=== PATIENT | female | born 1990 | race Hispanic/Latino ===

== ENCOUNTER 2017-03-11 13:54 | Emergency (ER) | payer MEDICAID, OTHER ==
[2017-03-11 13:54] VITALS: BMI 32.9
[2017-03-11 14:11] VITALS: BP 160/75; PULSE 125; RESP 20; TEMP 99; O2SAT 96
[2017-03-11] MEDS ORDERED: Sodium Chloride 0.9% 1,000 ML IV STA (14:40)
--- NOTE | 2017-03-11 15:15 | ED PDOC ---
HPI: Female Pain Chief Complaint (Provider): R flank and lower abdominal pain History Per: Patient History/Exam Limitations: no limitations Onset/Duration Of Symptoms: Days Current Symptoms Are (Timing): Still Present Severity: Moderate Pain Scale Rating Of: 8 Ant/Post Bofy Image: 1 - Flank pain: sharp/stabbing /10; localized 2 - Lower abdo pain: pressure/cramping /; intermittnet Quality Of Discomfort: Sharp, Cramping, Pressure, Stabbing Associated Symptoms: Back Pain, Urinary Symptoms (increased frequency). denies : Nausea, Vomiting, Diarrhea, Constipation Alleviating Factors: None Additional Complaint(s): Luanne Garcia is a pleasant 26 yo lady with no significant past medical history presents to the ED with R sided flank and lower abdominal pain. Symptoms began spontaneously on Wednesday while she was resting. R flank pain: Stabbing, intermittent, /10, exacerbated with laying down, no alleviating factors. Has not tried OTC meds. Abdo pain: lower abdomen, suprapubic; intermittent; unknown aggravating factors ; non alleviating factors She denies recent history of similar symptoms. She shares of 1 week history of increased urinary frequency; denies hematuria, dysuria, burning on urination. Denies: N/V/CP/SOB/PEREZ/weakness/dizziness/constipation/diarrhea. No history of trauma/accidents/falls. 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 No known hx of STIs OB Hx: LMP: 02/06/2017; x2 full term F; 08/2016 stillborn at 23 wks [place]. NKDA Meds: none <Greg Abrams - Last Filed: 03/11/17 16:43> <Adeel Caldwell - Last Filed: 03/11/17 17:02> Time Seen by Provider: 03/11/17 14:18 Chief Complaint (Nursing): Female Genitourinary Supervising Attending Note - Supervising Attending Note The Documented history was done by the: Physician Ornamental Metal Erector The documented physical exam was done by the: Physician Ornamental Metal Erector The documented procedures were done by the: Physician Ornamental Metal Erector - Attestation: I have personally seen and examined this patient.: Yes I have fully participated in the care of the patient.: Yes I have reviewed all pertinent clinical information, including history, physical exam and plan: Yes - Notes: Notes:: abd pain <Adeel Caldwell - Last Filed: 03/11/17 17:02> Past Medical History Vital Signs: Last Vital Signs Temp 99 F 03/11/17 14:09 Pulse 125 H 03/11/17 14:09 Resp 20 03/11/17 14:09 BP 160/75 H 03/11/17 14:09 Pulse Ox 96 03/11/17 14:09 - Family History Family History: States: Unknown Family Hx - Immunization History Hx Tetanus Toxoid Vaccination: No Hx Influenza Vaccination: No Hx Pneumococcal Vaccination: No <Greg Abrams - Last Filed: 03/11/17 16:43> Vital Signs: Last Vital Signs Temp 99 F 03/11/17 14:09 Pulse 125 H 03/11/17 14:09 Resp 20 03/11/17 14:09 BP 160/75 H 03/11/17 14:09 Pulse Ox 96 03/11/17 16:48 <Adeel Caldwell - Last Filed: 03/11/17 17:02> - Home Medications Home Medications: Ambulatory Orders Medication Instructions Recorded Ibuprofen [Motrin] 600 mg PO TID 7 Days tab 03/11/17 Nitrofurantoin Macrocrystals 100 mg PO BID #10 cap 03/11/17 [Macrobid] - Allergies Allergies/Adverse Reactions: Allergies Allergy/AdvReac Type Severity Reaction Status Date / Time No Known Allergies Allergy Verified 02/22/17 19:37 Physical Exam - Reviewed Vital Signs Reviewed: Yes (Repeat Vitals: Manual BP cuff at 122/60 Pulse: 88) - Physical Exam Appears: Positive for: Well, No Acute Distress Skin: Positive for: Normal Color, Warm, Dry Eye Exam: Positive for: EOMI Cardiovascular/Chest: Positive for: Regular Rate, Rhythm Respiratory: Positive for: Normal Breath Sounds Gastrointestinal/Abdominal: Positive for: Bowel Sounds, Soft, Tenderness Pelvic Exam: Positive for: External Exam Normal, Speculum Exam Normal, Bimanual Exam Normal, No Cerv. Motion Tender, No Masses, Discharge (White/yellow), Other (Cervix closed). Negative for: Active Bleeding, Lesions Back: Negative for: L CVA Tenderness, R CVA Tenderness Extremity: Negative for: Calf Tenderness Neurologic/Psych: Positive for: Alert, information systems consultant II-XII, Oriented <AlizaGreg Gray Filed: 03/11/17 16:43> - Physical Exam Gastrointestinal/Abdominal: Positive for: Soft, Tenderness (lower R) <Adeel Caldwell Becky Filed: 03/11/17 17:02> - Laboratory Results Result Diagrams: 03/11/17 15:40 03/11/17 15:40 - ECG O2 Sat by Pulse Oximetry: 96 <AlizaGreg Filed: 03/11/17 16:43> - Laboratory Results Result Diagrams: 03/11/17 15:40 03/11/17 15:40 - Progress ED Course And Treament: 1702: Stable. AAOx3. Pain free. Tolerated PO. No tachy as evaluated in room. BP wnl. <Adeel Caldwell Becky Gray Filed: 03/11/17 17:02> Disposition - Patient ED Disposition Is Patient to be Admitted: No Discussed With : Adeel Caldwell (r/o: /ectopic/UTI/nephrolithiais /appendicitis/ovarian torsion/PID) Comment: Pt shares of improved symptoms. UPT neg. CT abdo no acute findings. UA small LE. Discharge home with empiric abx. f/u with PCP;. Pain managment: motrin or acetaminophen - Disposition Disposition: Routine/Home Disposition Time: 16:45 <AlizaGreg Filed: 03/11/17 16:43> - Patient ED Disposition Is Patient to be Admitted: No Counseled Patient/Family Regarding: Studies Performed, Diagnosis, Need For Followup, Rx Given - Disposition Disposition: Routine/Home <Adeel Caldwell Becky Gray Filed: 03/11/17 17:02> - Clinical Impression Clinical Impression: Urinary tract infection, Abdominal pain - Disposition Referrals: [facility] [Outside] - 03/12/17 Condition: STABLE Additional Instructions: Return if not better in 3 days. Prescriptions: Ibuprofen [Motrin] 600 mg PO TID 7 Days tab Nitrofurantoin Macrocrystals [Macrobid] 100 mg PO BID #10 cap Instructions: Acute Abdominal Pain (ED), Urinary Tract Infection in Women (ED) Forms: [facility] ([place]), [facility] ED School/Work Excuse
[2017-03-11 16:05] LABS: BASO % 0.4 % (0.0-2.0); EOS # 0.1 K/uL (0.0-0.7); EOS % 1.1 % (0.0-4.0); HEMATOCRIT 39.2 % (34.0-47.0); LYMPH # 0.8 K/uL (1.0-4.3); MEAN CELL VOLUME 90.9 fl (81.0-99.0); MEAN CORPUSCULAR HEMOGLOBIN 30.5 pg (27.0-31.0); MEAN CORPUSCULAR HGB CONC 33.5 g/dL (33.0-37.0); MEAN PLATELET VOLUME 8.6 fl (7.2-11.7); MONO # 0.3 K/uL (0.0-0.8); MONO % 5.3 % (0.0-10.0); NEUT # 4.3 K/uL (1.8-7.0); NEUT % 78.2 % (50.0-75.0); RED CELL DISTRIBUTION WIDTH 12.9 % (11.5-14.5); WHITE BLOOD COUNT 5.5 K/uL (4.8-10.8)
--- NOTE | 2017-03-11 16:05 | CT ---
PROCEDURE: CT Abdomen and Pelvis without intravenous contrast HISTORY: Right-sided abdominal and back pain, right lower quadrant pain. By history, negative test (concurrent with this examination). COMPARISON: None. TECHNIQUE: Unenhanced study. Neither oral nor intravenous contrast administered. Radiation dose: Total exam DLP = 960.33 mGy-cm. This CT exam was performed using one or more of the following dose reduction techniques: Automated exposure control, adjustment of the mA and/or kV according to patient size, and/or use of iterative reconstruction technique. FINDINGS: LOWER THORAX: Unremarkable. LIVER: Unremarkable. No gross lesion or ductal dilatation. GALLBLADDER AND BILE DUCTS: Unremarkable. PANCREAS: Unremarkable. No gross lesion or ductal dilatation. SPLEEN: Unremarkable. ADRENALS: Unremarkable. No mass. KIDNEYS AND URETERS: Unremarkable. No hydronephrosis. No solid mass. VASCULATURE: Unremarkable. No aortic aneurysm. BOWEL: Unremarkable. No obstruction. No gross mural thickening. APPENDIX: Unremarkable. Normal appendix. PERITONEUM: Unremarkable. No free fluid. No free air. LYMPH NODES: Unremarkable. No enlarged lymph nodes. BLADDER: Unremarkable. REPRODUCTIVE: Unremarkable. BONES: No acute fracture. OTHER FINDINGS: None. IMPRESSION: No acute findings related to/accounting for the clinical presentation.
[2017-03-11 16:14] LABS: ALB/GLOB RATIO 1.5 (1.0-2.1); ALKALINE PHOSPHATASE 34 U/L (38-126); ALT/SGPT 30 U/L (9-52); AST/SGOT 23 U/L (14-36); BILIRUBIN,TOTAL 0.9 mg/dl (0.2-1.3); BLOOD UREA NITROGEN 13 mg/dl (7-17); CALCIUM 9.2 mg/dL (8.4-10.2); CARBON DIOXIDE 22 mmol/L (22-30); CHLORIDE 109 mmol/L (98-107); GFR AFRICAN-AMERICAN > 60; GLUCOSE,RANDOM 91 mg/dL (65-105); POTASSIUM 3.7 MMOL/L (3.6-5.0); SODIUM 143 mmol/l (132-148); TOTAL PROTEIN 7.9 G/DL (6.3-8.2)
[2017-03-11 16:26] LABS: RBC URINE 2 /hpf (0-3); URINE BACTERIA RARE (<OCC); URINE BILIRUBIN NEGATIVE (NEGATIVE); URINE BLOOD SMALL (NEGATIVE); URINE COLOR YELLOW (YELLOW); URINE GLUCOSE (UA) NEG (Normal); URINE KETONE TRACE mg/dL (NEGATIVE); URINE LEUKOCYTE ESTERASE SMALL Leu/uL (Negative); URINE PROTEIN 30 mg/dL (NEGATIVE); URINE UROBILINOGEN 0.2-1.0 mg/dL (0.2-1.0); WBC URINE 3 /hpf (0-5)
== END 2017-03-11 18:00 | disposition home or self-care (01) ==
LOC: H.ER 13:54
DX: N39.0 Urinary tract infection, site not specified (principal)
CPT/HCPCS: 74176; 80053; 81003; 81025; 85025; 87086; 87491; 87591; 96374; 99283; J1885; J7040

== ENCOUNTER 2017-06-14 17:09 | Emergency (ER) | payer MEDICAID, OTHER ==
[2017-06-14 17:09] VITALS: BMI 32.9
[2017-06-14 18:06] VITALS: BP 139/81; PULSE 90; RESP 20; TEMP 98.7; O2SAT 99
--- NOTE | 2017-06-14 18:47 | ED PDOC ---
HPI: General Adult Time Seen by Provider: 06/14/17 18:38 Chief Complaint (Nursing): Back Pain Chief Complaint (Provider): back pain, chest pain, abd pain History Per: Patient Additional Complaint(s): 26-year-old female presents to emergency department with right-sided lower back pain that radiates to right lower quadrant 2 days. Patient denies fever or chills. She has had mild dysuria but denies hematuria, vaginal bleeding or vaginal discharge. Patient also complains of intermittent chest pain since yesterday. She has had dry cough with no fever or chills. Patient denies shortness of breath or dyspnea on exertion. Motrin has provided minimal relief of back pain, no associated nausea or vomiting. PMD: none Past Medical History Reviewed: Historical Data, Nursing Documentation, Vital Signs Vital Signs: Last Vital Signs Temp 98.7 F 06/14/17 18:03 Pulse 90 06/14/17 18:03 Resp 20 06/14/17 18:03 BP 139/81 06/14/17 18:03 Pulse Ox 99 06/14/17 19:43 - Medical History PMH: No Chronic Diseases - Surgical History Surgical History: No Surg Hx - Family History Family History: States: No Known Family Hx - Living Arrangements Living Arrangements: With Family - Social History Current smoker - smoking cessation education provided: Yes Alcohol: Social Drugs: Denies - Home Medications Home Medications: Ambulatory Orders Medication Instructions Recorded Nitrofurantoin Macrocrystals 100 mg PO BID #14 cap 05/27/17 [Macrobid] - Allergies Allergies/Adverse Reactions: Allergies Allergy/AdvReac Type Severity Reaction Status Date / Time No Known Allergies Allergy Verified 06/14/17 18:02 Review of Systems ROS Statement: Except As Marked, All Systems Reviewed And Found Negative Constitutional: Negative for: Fever, Chills Cardiovascular: Positive for: Chest Pain Respiratory: Positive for: Cough Gastrointestinal: Positive for: Nausea, Abdominal Pain. Negative for: Vomiting , Diarrhea Genitourinary Female: Positive for: Dysuria Musculoskeletal: Positive for: Back Pain Physical Exam - Reviewed Nursing Documentation Reviewed: Yes Vital Signs Reviewed: Yes - Physical Exam Appears: Positive for: Well, Non-toxic, No Acute Distress Head Exam: Positive for: ATRAUMATIC, NORMAL INSPECTION, NORMOCEPHALIC Skin: Negative for: Rash Eye Exam: Positive for: Normal appearance Cardiovascular/Chest: Positive for: Regular Rate, Rhythm Respiratory: Positive for: Normal Breath Sounds Gastrointestinal/Abdominal: Positive for: Soft. Negative for: Tenderness, Distended, Guarding, Rebound Back: Positive for: R CVA Tenderness, Vertebral Tenderness (lumbar). Negative for: L CVA Tenderness Extremity: Positive for: Normal ROM Neurologic/Psych: Positive for: Alert, Oriented - Laboratory Results Result Diagrams: 06/14/17 19:19 Urine POC: Negative Urine dip results: Positive for: Blood. Negative for: Leukocyte Esterase, Nitrate, Ketones, Glucose, Bilirubin, Protein - ECG Interpretation Of ECG: Sinus tach 106 bpm, no acute finding, reviewed by PA and ED attending O2 Sat by Pulse Oximetry: 99 Pulse Ox Interpretation: Normal - Other Rad CXR X-Ray: Interpreted by Me, Viewed By Me X-Ray Interpretation: no acute finding Medical Decision Making Medical Decision Makin26 year old with chest, back and abd pain Plan: Urine test Urine dip CBC CMP Flu swab EKG CXR CT abd and pelvis without contrast IVF IV toradol Urine culture CHL/GC culture Disposition - Clinical Impression Clinical Impression: Back pain, Abdominal pain - Patient ED Disposition Is Patient to be Admitted: Transfer of Care - Disposition Disposition: Transfer of Care Disposition Time: 20:00 Condition: STABLE Forms: [facility] ([place]) Patient Signed Over To: Meera Echeverria Handoff Comments: Signed out pending diagnostic testing results, re-evaluation and final disposition
[2017-06-14] MEDS ORDERED: Sodium Chloride 0.9% 1,000 ML IV STA (18:48)
[2017-06-14 19:23] LABS: BASO % 0.5 % (0.0-2.0); EOS # 0.1 K/uL (0.0-0.7); EOS % 1.8 % (0.0-4.0); HEMOGLOBIN 13.8 g/dL (12.0-16.0); LYMPH # 1.5 K/uL (1.0-4.3); LYMPH % 17.9 % (20.0-40.0); MEAN CELL VOLUME 92.1 fl (81.0-99.0); MEAN CORPUSCULAR HEMOGLOBIN 30.8 pg (27.0-31.0); MEAN CORPUSCULAR HGB CONC 33.4 g/dL (33.0-37.0); MEAN PLATELET VOLUME 8.7 fl (7.2-11.7); MONO # 0.5 K/uL (0.0-0.8); MONO % 5.5 % (0.0-10.0); NEUT # 6.2 K/uL (1.8-7.0); NEUT % 74.3 % (50.0-75.0); NRBC % 0.1 % (0.0-0.0); RBC 4.49 Mil/uL (3.80-5.20); RED CELL DISTRIBUTION WIDTH 13.3 % (11.5-14.5); WHITE BLOOD COUNT 8.3 K/uL (4.8-10.8)
[2017-06-14 20:30] LABS: ALB/GLOB RATIO 1.4 (1.0-2.1); ALBUMIN 4.6 g/dL (3.5-5.0); ALT/SGPT 35 U/L (9-52); AST/SGOT 18 U/L (14-36); BLOOD UREA NITROGEN 17 mg/dl (7-17); CALCIUM 9.2 mg/dL (8.4-10.2); GFR AFRICAN-AMERICAN > 60; GFR NON-AFRICAN AMERICAN > 60
--- NOTE | 2017-06-14 21:03 | CT ---
EXAM: CT Abdomen and Pelvis Without Intravenous Contrast CLINICAL HISTORY: 26 years old, female; Pain; Abdominal pain; Flank; Right; Additional info: Right flank pain, right abd pain. Sent phy. Doc. TECHNIQUE: Axial computed tomography images of the abdomen and pelvis without intravenous contrast. All CT scans at this facility use one or more dose reduction techniques, viz.: automated exposure control; ma/kV adjustment per patient size (including targeted exams where dose is matched to indication; i.e. head); or iterative reconstruction technique. Coronal and sagittal reformatted images were created and reviewed. COMPARISON: CT - ABD PELVIS W/O PO OR IV CONT 2017-03-11 15:08 FINDINGS: Limitations: Motion artifact - mild. Lower thorax: No acute findings. ABDOMEN: Liver: Unremarkable. Gallbladder and bile ducts: No calcified stones. No ductal dilation. Pancreas: Unremarkable. No ductal dilation. Spleen: No splenomegaly. Adrenals: No mass. Kidneys and ureters: No renal calculi. No hydronephrosis. Stomach and bowel: No definite mural thickening. No obstruction. Appendix: Normal caliber. No inflammation. PELVIS: Bladder: Unremarkable. No stones. Reproductive: Unremarkable as visualized. ABDOMEN and PELVIS: Intraperitoneal space: No significant fluid collection. No free air. Bones/joints: Few healed rib fractures. Soft tissues: Unremarkable. Vasculature: Unremarkable. No aneurysm. Lymph nodes: No pathologically enlarged lymph nodes. IMPRESSION: 1. No definite CT evidence of urolithiasis. 2. Incidental/non-acute findings are described above.
--- NOTE | 2017-06-14 23:14 | US ---
EXAM: US Pelvis, Transvaginal CLINICAL HISTORY: 26 years old, female; Pain; Pelvic pain; Additional info: Right sided pelvic pain, radiates to back TECHNIQUE: Real-time transvaginal pelvic ultrasound (complete) with image documentation. Transvaginal imaging was used for better evaluation of the endometrium and adnexa. COMPARISON: CT - ABD PELVIS W/O PO OR IV CONT 2017-06-14 20:10 FINDINGS: Uterus/cervix: Uterus measures 7.3 x 4.0 x 4.9 cm in size. No myometrial mass. Endometrium: 0.9 cm in thickness. Right ovary: 3.5 x 2.5 x 3.1 cm in size. No mass. Small follicles. Normal flow. Left ovary: 2.5 x 2.0 x 2.5 cm in size. No mass. Small follicles. Normal flow. Free fluid: No significant free fluid. Bladder: Empty bladder which cannot be evaluated with this probe. IMPRESSION: 1.No acute findings.
--- NOTE | 2017-06-15 00:01 | ED PDOC ---
- Laboratory Results Result Diagrams: 06/14/17 19:19 06/14/17 20:05 Urine POC: Negative - ECG O2 Sat by Pulse Oximetry: 99 Disposition - Clinical Impression Clinical Impression: Back pain, Abdominal pain - POA Present On Arrival: None - Disposition Disposition: Routine/Home Disposition Time: 00:01 Condition: GOOD Instructions: Back Pain (ED) Forms: [facility] ([place])
--- NOTE | 2017-06-15 10:03 | CARD ---
APPROVED REPORT EKG Measurement Heart [id number] <Conclusion> Sinus tachycardia Biatrial enlargement ST & T wave abnormality, consider inferior ischemia Abnormal ECG
--- NOTE | 2017-06-15 10:27 | RAD ---
HISTORY: pain COMPARISON: No prior. FINDINGS: LUNGS: No active pulmonary disease. PLEURA: No significant pleural effusion identified, no pneumothorax apparent. CARDIOVASCULAR: Normal. OSSEOUS STRUCTURES: No significant abnormalities. VISUALIZED UPPER ABDOMEN: Normal. OTHER FINDINGS: None. IMPRESSION: No active disease.
== END 2017-06-15 00:30 | disposition home or self-care (01) ==
LOC: H.ER 17:09
DX: R07.89 Other chest pain (principal); R10.31 Right lower quadrant pain; M54.9 Dorsalgia, unspecified; I51.7 Cardiomegaly
CPT/HCPCS: 71045; 74176; 76830; 80053; 81025; 85025; 87086; 87491; 87591; 87804; 93005; 96374; 99282; J1885; J2270; J7040

== ENCOUNTER 2017-11-05 10:52 | Emergency (ER) | payer OTHER ==
[2017-11-05 11:08] VITALS: BMI 35.1
--- NOTE | 2017-11-05 11:42 | ED PDOC ---
HPI: Female Pain Time Seen by Provider: 11/05/17 11:10 Chief Complaint (Nursing): Female Genitourinary Chief Complaint (Provider): Female Genitourinary History Per: Patient History/Exam Limitations: no limitations Additional Complaint(s): Luanne Mc is a 26 y/o female who is with 1 prior second term demise last year who presents to the ED today with pelvic cramping and a positive home test. Patient reports her last normal menstrual period was around 10/22/17 and was very light; she also reports that she is irregular. She takes control as directed daily but stopped several days ago when she found the home test was positive. She denies any dizziness, fever, urinary symptoms, vomting, diarrhea, or any history of prior ectopic . Past Medical History Reviewed: Historical Data, Nursing Documentation, Vital Signs Vital Signs: Last Vital Signs Temp 98.6 F 11/05/17 11:07 Pulse 103 H 11/05/17 11:07 Resp BP 129/76 11/05/17 11:07 Pulse Ox 99 11/05/17 11:07 - Medical History PMH: No Chronic Diseases - Surgical History Surgical History: No Surg Hx - Family History Family History: States: Unknown Family Hx - Social History Current smoker - smoking cessation education provided: Yes Alcohol: Social Drugs: Denies - Home Medications Home Medications: Ambulatory Orders Medication Instructions Recorded Naproxen [Naprosyn] 500 mg PO BID PRN #14 tablet 11/05/17 - Allergies Allergies/Adverse Reactions: Allergies Allergy/AdvReac Type Severity Reaction Status Date / Time No Known Allergies Allergy Verified 11/05/17 11:22 Review of Systems ROS Statement: Except As Marked, All Systems Reviewed And Found Negative Constitutional: Negative for: Fever Gastrointestinal: Negative for: Vomiting, Diarrhea Genitourinary Female: Positive for: Vaginal Bleeding, Pelvic Pain. Negative for : Dysuria, Frequency, Incontinence Neurological: Negative for: Dizziness Physical Exam - Reviewed Nursing Documentation Reviewed: Yes Vital Signs Reviewed: Yes - Physical Exam Appears: Positive for: Non-toxic, No Acute Distress Head Exam: Positive for: ATRAUMATIC, NORMOCEPHALIC Skin: Positive for: Normal Color, Warm, Dry Eye Exam: Positive for: EOMI, Normal appearance, PERRL Neck: Positive for: Normal, Painless ROM, Supple Cardiovascular/Chest: Positive for: Regular Rate, Rhythm. Negative for: Murmur Respiratory: Positive for: Normal Breath Sounds. Negative for: Respiratory Distress Gastrointestinal/Abdominal: Positive for: Normal Exam, Soft, Tenderness (Mild lower abdominal tenderness). Negative for: Guarding Back: Positive for: Normal Inspection. Negative for: L CVA Tenderness, R CVA Tenderness, Vertebral Tenderness (midline) Extremity: Positive for: Normal ROM. Negative for: Deformity Neurologic/Psych: Positive for: Alert, Oriented - Laboratory Results Result Diagrams: 11/05/17 11:42 11/05/17 11:42 - ECG O2 Sat by Pulse Oximetry: 99 (RA) Pulse Ox Interpretation: Normal Medical Decision Making Medical Decision Making: Time: 11:22 Initial Impression: Pelvic pain Initial Plan: Confirm and if so r/o ectopic --Blood bank Type and Screen --beta-HCG --CMP --ED Urine --ED urine dipstick --CBC with differential ----- labs unremarkable UPreg neg BHCG neg US pelvis unremarkable no torsion Recommended pelvic exam but patient refused, stating will see BUFFERER wednesday for exam Results explained and questions answered, Rx naprosyn for pain, rec alternative contraception until sees BUFFERER and bleeding stops Scribe Attestation: Documented by Juan Austin, acting as a scribe for Bettie Flower MD. Provider Scribe Attestation: All medical record entries made by the Scribe were at my direction and personally dictated by me. I have reviewed the chart and agree that the record accurately reflects my personal performance of the history, physical exam, medical decision making, and the department course for this patient. I have also personally directed, reviewed, and agree with the discharge instructions and disposition. Disposition - Clinical Impression Clinical Impression: Pelvic pain - Patient ED Disposition Is Patient to be Admitted: No Counseled Patient/Family Regarding: Studies Performed, Diagnosis, Need For Followup, Rx Given - Disposition [facility] Disposition: Routine/Home Disposition Time: 14:55 Condition: STABLE Additional Instructions: Followup for BUFFERER evaluation and further testing. You refused a pelvic exam today , this needs to be performed and your BUFFERER doctor can complete at your request. Return to ER for any worse or new symptoms BHCG <2.5 today. Prescriptions: Naproxen [Naprosyn] 500 mg PO BID PRN #14 tablet PRN Reason: Pain, Moderate (4-7) Instructions: Acute Pelvic Pain Forms: [facility] ([place])
[2017-11-05 11:49] LABS: BASO % 0.8 % (0.0-2.0); EOS # 0.2 K/uL (0.0-0.7); EOS % 3.7 % (0.0-4.0); HEMOGLOBIN 12.8 g/dL (12.0-16.0); LYMPH % 18.6 % (20.0-40.0); MEAN CELL VOLUME 94.1 fl (81.0-99.0); MEAN CORPUSCULAR HEMOGLOBIN 32.1 pg (27.0-31.0); MEAN PLATELET VOLUME 8.9 fl (7.2-11.7); MONO # 0.3 K/uL (0.0-0.8); MONO % 4.7 % (0.0-10.0); NEUT % 72.2 % (50.0-75.0); RBC 3.99 Mil/uL (3.80-5.20); RED CELL DISTRIBUTION WIDTH 12.9 % (11.5-14.5); WHITE BLOOD COUNT 5.5 K/uL (4.8-10.8)
[2017-11-05 12:09] LABS: ALB/GLOB RATIO 1.4 (1.0-2.1); ALBUMIN 4.3 g/dL (3.5-5.0); ALT/SGPT 31 U/L (9-52); AST/SGOT 26 U/L (14-36); BLOOD UREA NITROGEN 13 mg/dl (7-17); GFR AFRICAN-AMERICAN > 60; GFR NON-AFRICAN AMERICAN > 60
--- NOTE | 2017-11-05 14:54 | US ---
HISTORY: pelvic pain r/o torsion COMPARISON: None available. TECHNIQUE: Transabdominal and transvaginal pelvic ultrasound was performed with longitudinal and transverse images submitted for interpretation. FINDINGS: UTERUS: Measures 7.6 x 3.5 x 3.8 cm. Normal in size and appearance. No fibroid or other mass lesion seen. ENDOMETRIUM: Measures 2.8 mm in diameter. Unremarkable. CERVIX: No cervical abnormality identified. RIGHT OVARY: Measures 3.3 x 1.7 x 2.5 cm. No solid mass. Normal flow. LEFT OVARY: Measures 3.0 x 2.1 x 3.2 cm. No solid mass. Normal flow. FREE FLUID: No significant free fluid noted. OTHER FINDINGS: None. IMPRESSION: Unremarkable pelvic ultrasound.
[2017-11-05 15:29] VITALS: BP 126/78; PULSE 78; RESP 19; TEMP 97.6
[2017-11-05 15:36] VITALS: O2SAT 99
== END 2017-11-05 15:30 | disposition home or self-care (01) ==
LOC: MERGE 10:52 → H.ER 10:52
DX: R10.2 Pelvic and perineal pain (principal)

== ENCOUNTER 2018-07-25 08:35 | Emergency (ER) | payer OTHER ==
[2018-07-25 09:00] VITALS: BMI 36.6
[2018-07-25 10:17] LABS: SQUAMOUS EPITHIAL 2 /hpf (0-5); URINE BILIRUBIN NEGATIVE (NEGATIVE); URINE BLOOD NEGATIVE (NEGATIVE); URINE CLARITY SLIGHTY-CLOUDY (Clear); URINE COLOR YELLOW (YELLOW); URINE GLUCOSE (UA) NEG (NEGATIVE); URINE LEUKOCYTE ESTERASE NEG Leu/uL (Negative); URINE PROTEIN NEGATIVE (NEGATIVE); URINE UROBILINOGEN 0.2-1.0 mg/dL (0.2-1.0)
--- NOTE | 2018-07-25 10:59 | OBHP ---
Datetime: 07/25/2018 09:17 IP Adm Impression: , intrauterine IP Admit Plan: Observation/Evaluation Admit Comment, IP Provider: PNP: Dr. Waldron/Mayur 27 y/o @ 29.4 wks HERMILA/10/06/2018 c/o some fluid lead which she noticed at about 3am this mor bessy while asleep. She repors noticing another small amt of fluid loss at about 8am along with some l ower abdominal discomfort. +FM, denies vb, f/c/headache/n/v/cp/sob or cp. OBGYNhx: x 2 (2012, 2014, both were full term), 2 terminated , 1 demise at 23w pa, 2017 PMH: obesity Meds: vaginal progesterone, PNV, baby aspirin Allergies: NKA Surghx: denies Famhx: healthy Sochx: denies etOH, elicit drug or cigarette use ROS: 12 points reviewed and are neg unless otherwise mentioned in HPI PE: GEn: obese, female breathing comfortably Cardio: s1s2 RRR Lungs: cta b/l Abd: gravid, soft, nontender, no rigidity, no guarding Pelvic: -Sterile speculum exam showed no fluid; cervix closed Ext: dilated, tortous veins in b/l lower legs; minimal tenderness to palpation; no-pitting edema A/P: 27 y/o @ 29.4 wks, clinically stable, HERMILA/10/06/2018 c/o some fluid leak this am. -Given that no fluid was noted on sterile speculum exam _ nitrazine test negative, ROM ruled out. -Cervix closed therefor labor ruled out. -FU UA. If neg dc harm. Patient seen and examined with Dr. Hughes -Eboni Ross, PGY-[address] Hughes: I have evaluated the patient independently and I agree with the above Extremities - PN: Normal Abdomen - PN: Normal Heart - PN: Normal General - PN: Normal Gestation - Est Wks by US: 29.4 Pool Provider: Negative Nitrazine Provider: Negative IP Hx Assessment: The History has been Reviewed and is Current Vital Signs Provider: Reviewed; Within Normal Limits IP Chief Complaint: Suspected ruptured membranes; Maternal discomfort NICHD Variability Prov Fetus A: Moderate 6-25bpm NICHD Accel Fetus A IP Provider: [id number] FHR Category Provider Fetus A: Category I NICHD Decel Fetus A IP Provider: None Dilatation, Provider: closed
--- NOTE | 2018-07-25 11:14 | OBDCSUM ---
Datetime: 07/25/2018 10:41 Discharged to, Provider: Home Follow up at, Provider: Dr Lamar Disch Instr Activity: Normal activity Disch Instr Diet: Regular Discharge Time: 07/25/2018 10:42 Follow up in weeks, Provider: CHARLES garcia OB visit Disch Referrals: None Discharge Diagnosis Prov Other: encoutner for suspected rupture of membranes, ROM not found
[2018-07-25 16:12] VITALS: BP 106/47; PULSE 95; RESP 18; TEMP 98.6
== END 2018-07-25 10:48 | disposition home or self-care (01) ==
LOC: H.EROB2 08:35 → H.EROB 09:14 → H.EROB2 10:48
DX: O34.63 Maternal care for abnormality of vagina, third trimester (principal); N89.8 Other specified noninflammatory disorders of vagina; Z3A.29 29 weeks gestation of pregnancy

== ENCOUNTER 2018-09-30 07:59 | Inpatient (IN) | payer OTHER ==
[2018-09-30 08:21] VITALS: BMI 40.2
[2018-09-30] MEDS ORDERED: Lactated Ringer's 1,000 ML IV ONE (08:21)
[2018-09-30 09:04] LABS: BASO % 0.4 % (0.0-2.0); EOS # 0.2 K/uL (0.0-0.7); EOS % 1.6 % (0.0-4.0); HEMOGLOBIN 10.1 g/dL (12.0-16.0); LYMPH # 1.2 K/uL (1.0-4.3); LYMPH % 12.2 % (20.0-40.0); MEAN CELL VOLUME 84.6 fl (81.0-99.0); MEAN CORPUSCULAR HEMOGLOBIN 27.7 pg (27.0-31.0); MEAN CORPUSCULAR HGB CONC 32.7 g/dL (33.0-37.0); MEAN PLATELET VOLUME 8.9 fl (7.2-11.7); MONO # 0.6 K/uL (0.0-0.8); MONO % 5.8 % (0.0-10.0); NEUT # 7.6 K/uL (1.8-7.0); NRBC % 0.1 % (0.0-0.0); RBC 3.65 Mil/uL (3.80-5.20); RED CELL DISTRIBUTION WIDTH 14.1 % (11.5-14.5); WHITE BLOOD COUNT 9.5 K/uL (4.8-10.8)
--- NOTE | 2018-09-30 11:49 | OBADHP ---
Datetime: 09/30/2018 09:22 Admit Comment, IP Provider: HPI: Luanne is a 27 year old at 38.6 here for IOL. Patient is brandy eduled due to history of a previous IUFD at 23.4 weeks d/t suspected intraamniotic infection. MFM rec ommended delivery at 38-39 weeks. Patient has been followed by [facility] during this with no comp lications reported. HERMILA: 10/08/18, determined by LMP and confirmed by first trimester US through the ED History G1: TAB in 2009 G2: 2012, at 40 weeks, no complications, female infant G3: TAB in 2013 G4: 2014, at 40 weeks, no complications, female infant G5: 2016, 23 week IUFD G6: current PMH Denies PSH Denies Medications PNV ASA 81mg (stopped at 36 weeks) Allergies NKDA Social FOB is involved, same FOB as 2 previous children. Denies alcohol, tobacco or drug use during the p regnancy FH Not significant PHYSICAL EXAM Vitals reviewed labs: A+, antibody neg, Hep B neg, RPR/HIV nonreactive, GBS negative ASSESSMENT/PLAN: 27 year old at 38.6 here for IOL secondary to previous second trimester I UFD - Trinh score = 4, unfavorable - Ordered cytotec 50mcg PO Q4 hours - GBS negative - Presentation vertex by palpation during exam - Anticipate vaginal delivery Plan discussed with attending, Dr. Reba Godoy MD OB Fellow OB Hospitalist note. Pt seen and disucssed IOL. Her questoins answered. Agree wit note. MAHNDO Abdomen - PN: Normal Lungs - PN: Normal Heart - PN: Normal HEENT - PN: Normal General - PN: Normal Presentation-Admit: Vertex IP Fetus A Comments: Reactive NST FHR - Baseline A Provider: 150 Membranes, Provider: Intact Gestation - Est Wks by US: 38.6 NICHD Variability Prov Fetus A: Marked >25bpm NICHD Accel Fetus A IP Provider: 15X15 NICHD Decel Fetus A IP Provider: None Dilatation, Provider: 2 Effacement, Provider: 50 Station, Provider: -3 IP Adm Impression: Term, intrauterine IP Admit Plan: Admit to unit; Initiate labor induction protocol Datetime: 07/25/2018 09:17 Extremities - PN: Normal Pool Provider: Negative Nitrazine Provider: Negative IP Hx Assessment: The History has been Reviewed and is Current Vital Signs Provider: Reviewed; Within Normal Limits IP Chief Complaint: Suspected ruptured membranes; Maternal discomfort FHR Category Provider Fetus A: Category I
[2018-09-30] MEDS ORDERED: Oxytocin 30 UNIT in NS 500 ml 30 UNITS/500 ML BAG IV ONE ×3 (19:41→20:55)
[2018-09-30] MEDS ORDERED: OXYTOCIN/0.9 % NS 20 UNIT/1,000 ML BAG IV SCH (19:45)
[2018-09-30] MEDS: Lactated Ringer's 1,000 ML IV SCH (21:20)
[2018-10-01] MEDS ORDERED: Fentanyl/Bupivacaine HCl 250 ML EPI ONE (04:02)
[2018-10-01] MEDS ORDERED: Bupivacaine HCl 0.5% PF (30 ml) Inj ONE (04:06)
[2018-10-01] MEDS: Lactated Ringer's 1,000 ML IV SCH ×3 (05:55→21:02)
[2018-10-01] MEDS ORDERED: Oxytocin 30 UNIT in NS 500 ml 30 UNITS/500 ML BAG IV ONE ×2 (07:32→07:35)
[2018-10-01] MEDS ORDERED: Lidocaine 1% Inj (20ml) ONE (08:52)
--- NOTE | 2018-10-01 09:20 | OBPN ---
Datetime: 10/01/2018 09:18 IP Progress Impression: Normal progression of labor; Reassuring heart rate IP Procedures: Sterile Vag Exam IP Progress Plan: Anticipate Vaginal Delivery Membranes, Provider: Ruptured Amniotic Fluid Color, Provider: Clear Contraction Comments Provider: Q 2-4 FHR - Baseline A Provider: 140s Gestation - Est Wks by US: 39.0 NICHD Accel Fetus A IP Provider: 15X15 FHR Category Provider Fetus A: Category I NICHD Variability Prov Fetus A: Moderate 6-25bpm Dilatation, Provider: 10 Effacement, Provider: 100 Station, Provider: -1 NICHD Decel Fetus A IP Provider: None Datetime: 09/30/2018 21:30 Presentation-Admit: Vertex IP Progress Note Comment: IUP at 38.6 weeks In labor Plan: Augmentation with Pitocin. Monitor the progress of labor. Vital Signs Provider: Within Normal Limits Datetime: 09/30/2018 09:22 IP Fetus A Comments: Reactive NST Datetime: 07/25/2018 09:17 Pool Provider: Negative Nitrazine Provider: Negative
[2018-10-01] MEDS ORDERED: OXYTOCIN/0.9 % NS 20 UNIT/1,000 ML BAG IV SCH (10:00)
[2018-10-01] MEDS ORDERED: Oxycodone/Acetaminophen 5/325 mg Tab PO PRN ×2 (10:24→12:35)
[2018-10-01] MEDS ORDERED: Benzocaine/Menthol SPRAY TOP PRN (10:24)
[2018-10-01] MEDS: Benzocaine/Menthol SPRAY TOP PRN (12:44)
[2018-10-02] MEDS: Lactated Ringer's 1,000 ML IV SCH (05:00)
[2018-10-02 08:49] LABS: BASO # 0.1 K/uL (0.0-0.2); BASO % 0.5 % (0.0-2.0); EOS # 0.1 K/uL (0.0-0.7); EOS % 1.2 % (0.0-4.0); HEMOGLOBIN 9.8 g/dL (12.0-16.0); LYMPH # 1.8 K/uL (1.0-4.3); MEAN CORPUSCULAR HEMOGLOBIN 28.1 pg (27.0-31.0); MEAN CORPUSCULAR HGB CONC 33.1 g/dL (33.0-37.0); MEAN PLATELET VOLUME 9.1 fl (7.2-11.7); MONO # 0.6 K/uL (0.0-0.8); MONO % 5.4 % (0.0-10.0); NEUT # 7.9 K/uL (1.8-7.0); NEUT % 75.9 % (50.0-75.0); NRBC % 0.1 % (0.0-0.0); RBC 3.48 Mil/uL (3.80-5.20); RED CELL DISTRIBUTION WIDTH 14.5 % (11.5-14.5); WHITE BLOOD COUNT 10.4 K/uL (4.8-10.8)
[2018-10-02] MEDS: Benzocaine/Menthol SPRAY TOP PRN (16:12)
--- NOTE | 2018-10-03 07:34 | OBPPN ---
Datetime: 10/03/2018 06:32 PP Pain Prov: Within normal limits PP Nausea Prov: Denies PP Flatus Prov: Yes PP BM Prov: Yes PP Breasts Prov: Not Done PP Heart Prov: Normal PP Lungs Prov: Normal PP Abdomen/Uterus Prov: Normal PP Lochia Prov: Normal PP Vulva/Perineum Prov: Not Done PP CVA Tenderness Prov: Normal PP Extremities Prov: Normal PP Impression Prov: Normal progression PP Plan Prov: Continue present management; Discharge PP Progress Note Prov: 27 year old PPD2 s/p on 10/01/18 @ 38.6wks. Pt was seen and examin ed at bedside this AM. Pt is ambulating w.o difficulty and tolerating regular PO diet. Pt is breast a nd bottle feeding. Lochia is similar menses. + Flatus, + BM. Denies fevers, chills, dizziness, chest pain, SOB, nausea, vomiting, or dysuria. Gen: NAD HEENT: NCAT, EOMI Cardio: + S1S2, RRR Lungs: CTA B/L, no wheezes, rales or rhonchi Abd: soft, normal bowel sounds, mild appropriate tenderness to palpation lower abdomen, no rigidit y, no guarding, UB firm below level of umbilicus Ext: no pitting edema B/L LE, calves non tender to palpation H _ H: aCBC:10.1/30.9, pCBC: 9./.6 Assessment: 27 year old PPD2 s/p on 10/01/18 @ 38.6wks. Clinically stable. Plan: -Gave Percocet prn for better pain control -Final CBC: ..6 -Encouraged and ambulation -Script in chart for Ibuprofen 600mg 1 tab Q 6h PRN mild pain #30 No refills -Continue vitamin -D/C today 10/03/18 -Undecided on contraception -Pt will be seen at the [facility] in 6 week PP visit and visit in 2-3 day s. Emailed Kesha, pt will call in AM as well. -Ginger Gtz, PGY 1 OB Hospitalist Addendum: Pt seen and examined by me. Agree w/ above. PPD 2 s/p , doing well, breast and bottle feeding. Pt to resume iron at home. Discharge home today. (ES) IP PP Procedures: None Vital Signs Provider PP: Reviewed; Within Normal Limits
--- NOTE | 2018-10-03 07:37 | OBDCSUM ---
Datetime: 10/03/2018 06:33 Discharged to, Provider: Home Follow up at, Provider: [facility] Disch Instr Activity: Normal activity; May Shower Disch Instr Diet: Regular Discharge Instructions, Provider: Routine instructions given Discharge Diagnosis, Provider: Term Delivered Discharge Time: 10/03/2018 10:00 Follow up in weeks, Provider: 6 weeks Disch Referrals: None Contraception discussed, Prov: Yes Disch Activity Restrictions: No exercising; No lifting; No sexual activity; Nothing in vagina - Inte rcourse, tampons, douche Discharge Comment, Provider: 27 year old PPD2 s/p on 10/01/18 @ 38.6wks. : Female, Wt. 3460 gm, 9/9 Post- D/C Summary: No OB complications. No complications during post- period. Lochia i s less than menses. Pt able to pass flatus, voiding well and able to ambulate without difficulty. Had a BM yesterday. Tolerating regular diet w/o N/V. Fundus firm below umbilicus level. Pt is hemodynami keira stable (EBL 200cc). H/H: aCBC: 10.1/ 30.9 ; CBC: 9.8/29.6 Discharge Instructions given to patient: Encourage PNV 1 tab po q/day Ibuprofen 600 mg 1 tab po prn q4-6 if moderate pain #30. NO REFILL. Ambulatory with caution, nothing per vagina/sex for 4 weeks, no heavy lifting, avoid stairs, if ex cessive bleeding or fever without relief from Tylenol go to ED ED precautions: If excessive bleeding, pain that does not get relief, fever >100.4, palpitations, SOB, CP or other concerning symptom go to the ED. PT was urged if feeling sad, mood swing, depression, neglect of baby, suicidal thoughts, homicidal thoughts go to ER or call 911 for help Follow-up CF - 6 weeks post-- email sent to Brenda. Ginger Gtz, PGY 1 Discharge Diagnosis Prov Other: Undecided on control. States she will discuss with her PMD. Contraception after Delivery: Undecided
--- NOTE | 2018-10-03 11:08 | OBPPN ---
Datetime: 10/02/2018 07:28 PP Pain Prov: Within normal limits PP Nausea Prov: Denies PP Flatus Prov: Yes PP BM Prov: No PP Heart Prov: Normal PP Lungs Prov: Normal PP Abdomen/Uterus Prov: Normal PP Lochia Prov: Normal PP Extremities Prov: Abnormal PP Comments Phys Exam Prov: Gen: NAD HEENT: NCAT, EOMI Cardio: + S1S2, RRR Lungs: CTA B/L, no wheezes, rales or rhonchi Abd: soft, normal bowel sounds, mild appropriate tenderness to palpation lower abdomen, no rigidit y, no guarding, UB firm below level of umbilicus Ext: 1+ pitting edema B/L LE, calves non tender to palpation H _ H: aCBC:.9, pCBC: pending PP Impression Prov: Normal progression PP Plan Prov: Continue present management PP Progress Note Prov: Pt is a 27 year old PPD1 s/p on 10/01/18 @ 38.6wks. Pt was seen an d examined at bedside this AM. Patient reports cramping back pain and lower abdominal pain not contro lled with only ibuprofen. Pt is ambulating w.o difficulty and tolerating regular PO diet. Pt is breas t and bottle feeding. Lochia is similar menses. + Flatus, - BM. Denies fevers, chills, dizziness, sk[address] st pain, SOB, nausea, vomiting, or dysuria. Gen: NAD HEENT: NCAT, EOMI Cardio: + S1S2, RRR Lungs: CTA B/L, no wheezes, rales or rhonchi Abd: soft, normal bowel sounds, mild appropriate tenderness to palpation lower abdomen, no rigidit y, no guarding, UB firm below level of umbilicus Ext: 1+ pitting edema B/L LE, calves non tender to palpation H _ H: aCBC:.06/01.9, pCBC: pending Assessment: Pt is a 27 year old PPD1 s/p on 10/01/18 @ 38.6wks. clinically stable Plan: -Gave Percocet prn for better pain control -F/u Final CBC -Encouraged and ambulation -Script in chart for Ibuprofen 600mg 1 tab Q 6h PRN mild pain #30 No refills -Continue vitamin -Anticipated D/C tomorrow 10/03/18 -Undecided on contraception -Pt will be seen at the [facility] in 4-6 week PP visit and visit in 2-3 d ays. Emailed Kesha pt will call in AM as well. Case reviewed and discussed with Dr. Diane Santiago PGY1 Patient was seen and discussed with the resident and I agree with the above. IP PP Procedures: None Vital Signs Provider PP: Reviewed; Within Normal Limits Vital Signs Provider Details PP: BP 119/89
--- NOTE | 2018-10-03 11:08 | OBPN ---
Datetime: 10/01/2018 09:18 Presentation-Admit: Vertex IP Progress Note Comment: IUP at 39weeks Second Stage of Labor Plan: Anticipate spontaneous delivery.
--- NOTE | 2018-10-03 11:08 | OBDS ---
DELIVERY PERSONNEL Delivery Doctor: Scarlet Contreras MD Personnel Placement Specialist: Vicky Auguste RN Anesthesiologist: Dr Kincaid Resident: Ramon Gtz MATERNAL INFORMATION Delivery Anesthesia: Local; Epidural Medications in Delivery: pitocin Placenta Cultured: No Maternal Complications: None RN Comments: patient delivered viable girl via . infant was clamped and dried and placed on materal chest for skin to skin. was examined by practicing md anesthesiologist Dr Jacobo an nursery nurse. apgars were 9 and 9. patient remained in stable condition. remained w mother for bonding and latching. Provider Comments: Uncomplicated Spontaneous delivery of a viable female with BW of 7Ibs 10oz and scores of 9 and 9. Placenta delivered spontaneously over a 2 degree perineal laceration which was repaired with 3-0 v icryl and with good cosmesis. EBL- 300mls Patient tolerated the procedure well. LABOR SUMMARY EDC: 10/08/2018 00:00 No. Babies in Womb: 1 Labor Anesthesia: Epidural LABOR INFORMATION Reason for Induction: Other Reason for Induction Other: history of demise Onset of Labor: 10/01/2018 07:35 Complete Dilatation: 10/01/2018 08:45 Cervical Ripening Agents: Cytotec @ Oxytocin: Augmentation Group B Beta Strep: Negative Steroids Given: None Reason Steroids Not Administered: Not Applicable MEMBRANES Membranes Rupture Method: Spontaneous Rupture of Membranes: 10/01/2018 04:00 Length of Rupture (hrs): 6.08 Amniotic Fluid Color: Clear Amniotic Fluid Amount: Moderate Amniotic Fluid Odor: Normal STAGES OF LABOR Stage 1 hrs: 1 Stage 1 min: 10 Stage 2 hrs: 1 Stage 2 min: 20 Stage 3 hrs: 0 Stage 3 min: 5 Total Time in Labor hrs: 2 Total Time in Labor min: 35 VAGINAL DELIVERY Laceration Extension: Second Degree Laceration Type: Perineal Initial Vag Sponge Count: 5 Final Vag Sponge Count: 5 Initial Vag Sharps Count: 2 Final Vag Sharps Count: 2 Sponge Count Correct: Yes Sharps Count Correct: Yes BABY A INFORMATION Infant Delivery Date/Time: 10/01/2018 10:05 Method of Delivery: Vaginal Born in Route : No : N/A Forceps: N/A Vacuum Extraction: N/A Shoulder Dystocia : No ASSISTED DELIVERY BABY A Station Vacuum/Forcep Apply: SHOULDER DYSTOCIA BABY A Infant Delivery Date/Time: 10/01/2018 10:05 PRESENTATION/POSITION BABY A Presentation: Cephalic PLACENTA INFORMATION BABY A Placenta Delivery Time : 10/01/2018 10:10 Placenta Method of Delivery: Spontaneous Placenta Status: Delivered SCORES BABY A Heart Rate 1 min: >100 bpm Resp Effort 1 min: Good Cry Reflex Irritability 1 min: Cough or Sneeze or Pulls Away Muscle Tone 1 min: Active Motion Color 1 min: Body [place], Extremities Blue Resuscitation Effort 1 min: Tactile Stimulation SCORE 1 MIN: 9 Heart Rate 5 min: >100 bpm Resp Effort 5 min: Good Cry Reflex Irritability 5 min: Cough or Sneeze or Pulls Away Muscle Tone 5 min: Active Motion Color 5 min: Body [place], Extremities Blue Resuscitation Effort 5 min: N/A SCORE 5 MIN: 9 INFORMATION BABY A Gestational Age at Delivery: 39.0 Gestational Status: Term Infant Outcome : Liveborn Infant Condition : Stable Infant Sex: Female IDENTIFICATION/MEDS BABY A ID Band Number: [id number] WEIGHT/LENGTH BABY A Infant Birthweight (gms): 3460 Infant Weight (lb): 7 Infant Weight (oz): 10 CORD INFORMATION BABY A No. Cord Vessels: 3 Nuchal Cord : N/A Cord Blood Taken: Yes Suction: None ASSESSMENT BABY A Infant Complications: None Physical Findings at Delivery: Within Normal Limits Respirations: Appears Normal Equine Intern/ALS Called : No Transferred To: Remains with Mother
[2018-10-03 15:32] VITALS: BP 127/71; PULSE 76; RESP 20; TEMP 98.3; O2SAT 100
== END 2018-10-03 11:05 | disposition home or self-care (01) | DRG 373 ==
LOC: H.EROB2 07:59 → H.L&D 08:21 → H.OB/GYN 10-01 11:55
PROVIDERS: ADMIT Obstetrics & Gynecology; ATTEND Obstetrics & Gynecology
PROC: 10E0XZZ Delivery of Products of Conception, External Approach (ICD-10-PCS; principal; 2018-10-01)
PROC: 0KQM0ZZ Repair Perineum Muscle, Open Approach (ICD-10-PCS; 2018-10-01)
PROC: 3E0P7VZ Introduction of Hormone into Female Reproductive, Via Natural or Artificial Opening (ICD-10-PCS; 2018-10-01)
DX: O61.0 Failed medical induction of labor (principal); O70.1 Second degree perineal laceration during delivery; Z37.0 Single live birth; Z3A.39 39 weeks gestation of pregnancy